=== PATIENT | female | born 1940 | race Caucasian/White ===

== ENCOUNTER 2023-08-18 15:49 | Inpatient (IN) | payer MEDICARE ==
[2023-08-18] VITALS (7 sets, daily range): PULSE 102–160; RESP 30–36; O2SAT 91–97
[~2023-08-18] VITALS: Ht 160 cm; Wt 67.0 kg
[2023-08-18] MEDS: amiodarone 150mg/dext, iso-os 100 ML IV ONE (16:13)
[2023-08-18 16:15] LABS: ABG BASE EXCESS 6.8 mmol/L (-2.0-2.0); ABG HCO3 30.6 mmol/L (22.0-26.0); ABG OXYGEN SATURATION 88.7 % (94-97); ABG PCO2 (T) 40.6 mmHg (32.0-45.0); ABG PH (T) 7.495 (7.350-7.450); ABG PO2 (T) 50.6 mmHg (75.0-100.0); ALLEN'S TEST POSITIVE; FCOHb 0.1 % (0.0-3.9); FHHb 11.3 % (0.0-5.0); FLOW 7 L/min; FMetHb 0.2 % (0.0-1.5); FO2Hb 88.4 % (94-97); MODE MASK - CPAP; TOTAL HEMOGLOBIN 11.5 G/dl (12.0-16.0)
[2023-08-18] MEDS: amiodarone/D5 360MG/200ML BAG 200 ML IV SCH ×2 (16:27→22:05)
[2023-08-18] MEDS: albuterol 2.5 MG/3 ML nebule CONTNEB PRN (16:39)
[2023-08-18] MEDS: ipratropium 0.5 MG/2.5ML nebule IH ONE (16:44)
[2023-08-18 16:49] LABS: BASOPHILS # (AUTO) 0.1 X10'3 (0-0.2); BASOPHILS % (AUTO) 0.7 % (0-1); EOSINOPHILS # (AUTO) 0.1 X10'3 (0-0.9); HEMATOCRIT 39.2 % (35.0-45.0); HEMOGLOBIN 12.4 g/dl (12.0-16.0); LYMPHOCYTES # (AUTO) 0.9 X10'3 (1.1-4.8); MEAN CORPUSCULAR HEMOGLOBIN 30.1 PG (27.0-31.0); MEAN CORPUSCULAR HGB CONC 31.7 g/dL (33.0-36.5); MEAN CORPUSCULAR VOLUME 94.7 FL (78-98); MEAN PLATELET VOLUME 8.5 FL (7.4-10.4); MONOCYTES # (AUTO) 0.6 X10'3 (0-0.9); MONOCYTES % (AUTO) 7.5 % (2-12); NEUTROPHILS # (AUTO) 6.5 X10'3 (1.8-7.7); NEUTROPHILS % (AUTO) 79.8 % (42-75); PLATELET COUNT 380 X10'3 (140-440); RED BLOOD COUNT 4.13 X10'6 (4.20-5.60); RED CELL DISTRIBUTION WIDTH 20.1 % (11.5-14.5); WHITE BLOOD COUNT 8.1 X10'3 (4.5-11.0)
[2023-08-18 16:56] LABS: PROTHROMBIN TIME 11.2 SECONDS (9.0-12.0)
[2023-08-18 17:07] LABS: ALBUMIN 2.2 G/DL (3.4-5.0); ANION GAP 4 (8-16); BLOOD UREA NITROGEN 26 MG/DL (7-18); BUN/CREATININE RATIO 34.7 (10.0-20.0); CALCIUM 9.3 MG/DL (8.5-10.1); CHLORIDE 100 MMOL/L (99-107); CREATININE 0.75 MG/DL (0.40-0.90); GLUCOSE 119 MG/DL (70-104); PRO BRAIN NATRIURETIC PEPTIDE 5745 PG/ML (0-450); SODIUM 142 MMOL/L (135-145); TOTAL CARBON DIOXIDE 38.1 MMOL/L (24-32); eCRCL 49 ML/MIN; eGFR 74 ML/MIN
[2023-08-18] MEDS ORDERED: iohexol 350MG/ML 100ml bottle IV ONE (17:09)
[2023-08-18 17:14] LABS: POTASSIUM 5.4 MMOL/L (3.5-5.1)
[2023-08-18] MEDS ORDERED: heparin 10,000 units/1 ML INJ IV PRN ×2 (18:30→20:10)
[2023-08-18] MEDS ORDERED: heparin 10,000 units/1 ML INJ IV ONE (18:30)
[2023-08-18] MEDS: metoprolol tartrate 1mg/ml inj IV ONE (18:32)
[2023-08-18] MEDS: heparin 10,000 units/1 ML INJ IV ONE (18:46)
[2023-08-18] MEDS: heparin 25,000 UNIT/250ml bag 250 ML IV PRN (18:48)
[2023-08-18 19:06] LABS: BILIRUBIN,URINE NEGATIVE (Neg); CLARITY,URINE CLOUDY (Clear); COLOR,URINE YELLOW (Yellow); GLUCOSE, URINE NEGATIVE (Neg); KETONES,URINE NEGATIVE (Neg); LEUKOCYTE ESTERASE ,URINE LARGE (Neg); NITRITES, URINE NEGATIVE (Neg); OCCULT BLOOD,URINE TRACE-INTACT (Neg); PROTEIN,URINE 100 mg/dl (Neg); UROBILINOGEN,URINE 0.2 E.U/dL (0.2-1.0)
[2023-08-18 19:11] LABS: UA COLLECTION TYPE FOLEY CATH
[2023-08-18 19:15] LABS: BACTERIA,URINE 2+ /HPF (Neg); MUCUS STRANDS NONE SEEN /LPF (Neg); RBC,URINE 0-2 /HPF (0-2); SQUAMOUS EPITHELIAL CELL,UR NONE SEEN /LPF (FEW); WBC,URINE TNTC /HPF (0-4)
[2023-08-18 19:42] LABS: TOTAL CELLS COUNTED 100
[2023-08-18 19:43] LABS: ANISOCYTOSIS 3+; LARGE PLATELETS FEW; PLATELET ESTIMATE NORMAL
[2023-08-18] MEDS: ciprofloxacin lact 400MG/200ML 200 ML IV ONE (19:54)
[2023-08-18] MEDS ORDERED: potassium Cl 20 mEq SR tablet PO PRN ×3 (20:05→22:50)
[2023-08-18] MEDS ORDERED: magnesium 4gm in 100ml NS 100 ML IV PRN ×2 (20:05→22:50)
[2023-08-18] MEDS ORDERED: normal saline 1000ml 1,000 ML IV SCH (20:05)
[2023-08-18] MEDS ORDERED: morphine 2 MG/ML inj. syringe IV PRN ×3 (20:05→22:50)
[2023-08-18] MEDS ORDERED: acetaminophen 325mg tablet PO PRN ×3 (20:05→22:50)
[2023-08-18] MEDS ORDERED: potassium Cl 40MEQ/1/2NS 520ml 520 ML IV PRN ×2 (20:05→22:50)
[2023-08-18] MEDS ORDERED: HYDROcodone/acetaminophen 10/325mg tab PO PRN (20:05)
[2023-08-18] MEDS ORDERED: magnesium Cl slow-release 64mg tablet PO PRN ×2 (20:05→22:50)
[2023-08-18] MEDS ORDERED: ondansetron/PF 4mg/2ml inj IV PRN ×2 (20:05→22:50)
[2023-08-18] MEDS ORDERED: magnesium 2GM in 50ml NS 50 ML IV PRN ×2 (20:05→22:50)
[2023-08-18] MEDS ORDERED: HYDROcodone/acetaminophen 5mg/325mg tablet PO PRN ×2 (20:05→22:50)
[2023-08-18] MEDS ORDERED: heparin 25,000 UNIT/250ml bag 250 ML IV PRN (20:10)
[2023-08-18] MEDS: acetaminophen 1,000mg/100ml IV 100 ML IV ONE (20:22)
[2023-08-18] MEDS: normal saline 1000ml 1,000 ML IV ONE (21:15)
[2023-08-18] MEDS: normal saline 1000ML IV soln IVB ONE (22:15)
[2023-08-18] MEDS: normal saline 1000ml 1,000 ML IV SCH (22:50)
[2023-08-18] MEDS ORDERED: BUDE0.5A11 NEB (23:31)
[2023-08-18] MEDS ORDERED: IRON150C5 PO (23:31)
[2023-08-18] MEDS ORDERED: LACT10SO7 PO (23:31)
[2023-08-18] MEDS ORDERED: FORM20VI IH (23:31)
[2023-08-18] MEDS ORDERED: PANT-47 PO (23:33)
[2023-08-18] MEDS ORDERED: LOP12.5T PO (23:33)
[2023-08-19] VITALS (23 sets, daily range): BP systolic 98–126; BP diastolic 44–67; PULSE 76–101; RESP 15–31; TEMP 96.7–97.6; O2SAT 90–98
[2023-08-19] MEDS ORDERED: albuterol 2.5 MG/3 ML nebule NEB SCH
[2023-08-19] MEDS: heparin 25,000 UNIT/250ml bag 250 ML IV PRN (01:39)
[2023-08-19] MEDS ORDERED: furosemide 40mg/4ml inj IV SCH (08:00)
[2023-08-19] MEDS: ipratropium/albuterol 3ml nebule NEB PRN (09:39)
[2023-08-19] MEDS: budesonide 0.5mg/2ml UD nebule IH SCH (09:39)
[2023-08-19 09:54] LABS: ABG HCO3 30.6 mmol/L (22.0-26.0); ABG OXYGEN SATURATION 93.9 % (94-97); ABG PCO2 (T) 39.3 mmHg (32.0-45.0); ABG PH (T) 7.509 (7.350-7.450); ABG PO2 (T) 65.7 mmHg (75.0-100.0); ALLEN'S TEST POSITIVE; FCOHb 0.3 % (0.0-3.9); FHHb 6.1 % (0.0-5.0); FLOW 50 L/min; FMetHb 0.3 % (0.0-1.5); FO2Hb 93.3 % (94-97); MODE HHFNC; TOTAL HEMOGLOBIN 9.8 G/dl (12.0-16.0)
[2023-08-19 10:59] LABS: HEMOGLOBIN 8.6 g/dl (12.0-16.0)
[2023-08-19 11:02] LABS: BASOPHILS # (AUTO) 0.1 X10'3 (0-0.2); BASOPHILS % (AUTO) 0.8 % (0-1); EOSINOPHILS # (AUTO) 0.1 X10'3 (0-0.9); EOSINOPHILS % (AUTO) 1.5 % (0-6); HEMATOCRIT 26.3 % (35.0-45.0); LYMPHOCYTES # (AUTO) 1.5 X10'3 (1.1-4.8); LYMPHOCYTES % (AUTO) 15.9 % (21-51); MEAN CORPUSCULAR HEMOGLOBIN 30.7 PG (27.0-31.0); MEAN CORPUSCULAR HGB CONC 32.7 g/dL (33.0-36.5); MEAN CORPUSCULAR VOLUME 93.7 FL (78-98); MEAN PLATELET VOLUME 8.6 FL (7.4-10.4); MONOCYTES # (AUTO) 0.7 X10'3 (0-0.9); MONOCYTES % (AUTO) 7.3 % (2-12); NEUTROPHILS # (AUTO) 7.2 X10'3 (1.8-7.7); NEUTROPHILS % (AUTO) 74.5 % (42-75); PLATELET COUNT 386 X10'3 (140-440); RED BLOOD COUNT 2.81 X10'6 (4.20-5.60); RED CELL DISTRIBUTION WIDTH 19.6 % (11.5-14.5); WHITE BLOOD COUNT 9.7 X10'3 (4.5-11.0)
[2023-08-19 11:28] LABS: ALANINE AMINOTRANSFERASE 55 U/L (12-78); ALBUMIN 1.8 G/DL (3.4-5.0); ALBUMIN/GLOBULIN RATIO 0.5 (1.1-1.5); ALKALINE PHOSPHATASE 302 IU/L (46-116); ANION GAP 6 (8-16); ASPARTATE AMINO TRANSFERASE 50 U/L (10-37); BILIRUBIN,TOTAL 0.3 MG/DL (0.1-1.0); BLOOD UREA NITROGEN 24 MG/DL (7-18); BUN/CREATININE RATIO 34.8 (10.0-20.0); CALCIUM 9.1 MG/DL (8.5-10.1); CHLORIDE 103 MMOL/L (99-107); CREATININE 0.69 MG/DL (0.40-0.90); GLUCOSE 100 MG/DL (70-104); POTASSIUM 4.3 MMOL/L (3.5-5.1); SODIUM 141 MMOL/L (135-145); TOTAL CARBON DIOXIDE 31.8 MMOL/L (24-32); TOTAL PROTEIN 5.3 G/DL (6.4-8.2); eCRCL 53 ML/MIN; eGFR 81 ML/MIN
[2023-08-19 12:08] LABS: ANISOCYTOSIS 2+; PLATELET ESTIMATE NORMAL; TOTAL CELLS COUNTED 100
[2023-08-19 12:09] LABS: POLYCHROMASIA 1+
[2023-08-19 15:53] LABS: BASOPHILS # (AUTO) 0.1 X10'3 (0-0.2); BASOPHILS % (AUTO) 1.1 % (0-1); EOSINOPHILS # (AUTO) 0.1 X10'3 (0-0.9); EOSINOPHILS % (AUTO) 1.5 % (0-6); HEMATOCRIT 26.5 % (35.0-45.0); HEMOGLOBIN 8.7 g/dl (12.0-16.0); LYMPHOCYTES # (AUTO) 1.2 X10'3 (1.1-4.8); LYMPHOCYTES % (AUTO) 12.6 % (21-51); MEAN CORPUSCULAR HEMOGLOBIN 30.7 PG (27.0-31.0); MEAN CORPUSCULAR HGB CONC 32.8 g/dL (33.0-36.5); MEAN CORPUSCULAR VOLUME 93.5 FL (78-98); MEAN PLATELET VOLUME 8.3 FL (7.4-10.4); MONOCYTES # (AUTO) 0.7 X10'3 (0-0.9); MONOCYTES % (AUTO) 7.3 % (2-12); NEUTROPHILS # (AUTO) 7.3 X10'3 (1.8-7.7); NEUTROPHILS % (AUTO) 77.5 % (42-75); PLATELET COUNT 407 X10'3 (140-440); RED BLOOD COUNT 2.84 X10'6 (4.20-5.60); WHITE BLOOD COUNT 9.4 X10'3 (4.5-11.0)
[2023-08-19] MEDS: CefTRIAXone/D5W-Rocephin 1gm 50 ML IV ONE (18:47)
[2023-08-20] VITALS (36 sets, daily range): BP systolic 95–132; BP diastolic 54–80; PULSE 76–143; RESP 17–68; TEMP 96.3–100; O2SAT 88–97
[2023-08-20] MEDS: heparin 10,000 units/1 ML INJ IV PRN (04:41)
[2023-08-20 06:10] LABS: BASOPHILS # (AUTO) 0.1 X10'3 (0-0.2); BASOPHILS % (AUTO) 0.6 % (0-1); EOSINOPHILS # (AUTO) 0.2 X10'3 (0-0.9); HEMATOCRIT 35.7 % (35.0-45.0); HEMOGLOBIN 11.9 g/dl (12.0-16.0); LYMPHOCYTES # (AUTO) 0.8 X10'3 (1.1-4.8); LYMPHOCYTES % (AUTO) 4.8 % (21-51); MEAN CORPUSCULAR HEMOGLOBIN 29.9 PG (27.0-31.0); MEAN CORPUSCULAR HGB CONC 33.2 g/dL (33.0-36.5); MEAN PLATELET VOLUME 8.6 FL (7.4-10.4); MONOCYTES # (AUTO) 0.7 X10'3 (0-0.9); MONOCYTES % (AUTO) 4.7 % (2-12); NEUTROPHILS # (AUTO) 14.1 X10'3 (1.8-7.7); NEUTROPHILS % (AUTO) 88.9 % (42-75); PLATELET COUNT 382 X10'3 (140-440); RED BLOOD COUNT 3.97 X10'6 (4.20-5.60); RED CELL DISTRIBUTION WIDTH 18.9 % (11.5-14.5); WHITE BLOOD COUNT 15.9 X10'3 (4.5-11.0)
[2023-08-20 06:24] LABS: ALANINE AMINOTRANSFERASE 47 U/L (12-78); ALBUMIN 1.9 G/DL (3.4-5.0); ALBUMIN/GLOBULIN RATIO 0.5 (1.1-1.5); ALKALINE PHOSPHATASE 296 IU/L (46-116); ANION GAP 5 (8-16); ASPARTATE AMINO TRANSFERASE 41 U/L (10-37); BILIRUBIN,TOTAL 0.7 MG/DL (0.1-1.0); BLOOD UREA NITROGEN 18 MG/DL (7-18); BUN/CREATININE RATIO 26.1 (10.0-20.0); CALCIUM 8.5 MG/DL (8.5-10.1); CHLORIDE 104 MMOL/L (99-107); CREATININE 0.69 MG/DL (0.40-0.90); GLUCOSE 114 MG/DL (70-104); POTASSIUM 3.8 MMOL/L (3.5-5.1); SODIUM 141 MMOL/L (135-145); TOTAL CARBON DIOXIDE 31.8 MMOL/L (24-32); TOTAL PROTEIN 5.7 G/DL (6.4-8.2); eCRCL 53 ML/MIN; eGFR 81 ML/MIN
[2023-08-20] MEDS: amiodarone 200mg tablet PO SCH (08:05)
[2023-08-20] MEDS: amiodarone/D5 360MG/200ML BAG 200 ML IV SCH (08:20)
[2023-08-20] MEDS: CefTRIAXone/D5W-Rocephin 1gm 50 ML IV SCH (08:45)
[2023-08-20] MEDS ORDERED: linezolid 600mg/300ml PREMIX 300 ML IV SCH (10:50)
[2023-08-20] MEDS ORDERED: albuterol 2.5 MG/3 ML nebule NEB SCH (11:00)
[2023-08-20 12:07] LABS: HEMATOCRIT 34.7 % (35.0-45.0); HEMOGLOBIN 11.1 g/dl (12.0-16.0); MEAN CORPUSCULAR HEMOGLOBIN 29.3 PG (27.0-31.0); MEAN CORPUSCULAR HGB CONC 32.1 g/dL (33.0-36.5); MEAN CORPUSCULAR VOLUME 91.4 FL (78-98); MEAN PLATELET VOLUME 8.5 FL (7.4-10.4); PLATELET COUNT 395 X10'3 (140-440); RED BLOOD COUNT 3.79 X10'6 (4.20-5.60); RED CELL DISTRIBUTION WIDTH 20.4 % (11.5-14.5); WHITE BLOOD COUNT 17.4 X10'3 (4.5-11.0)
[2023-08-20] MEDS: linezolid 600mg/300ml PREMIX 300 ML IV SCH (12:35)
[2023-08-20] MEDS: iron polysaccharide complex 150mg capsule PO SCH (12:36)
[2023-08-20] MEDS: albuterol 2.5 MG/3 ML nebule NEB SCH (14:31)
[2023-08-20] MEDS: pantoprazole 40mg Tablet.DR PO SCH (17:00)
[2023-08-20] MEDS: lactulose 20gm/30ml cup PO SCH (20:00)
[2023-08-20] MEDS: metoprolol tartrate 12.5mg (1/2 tablet) PO SCH (20:00)
[2023-08-20] MEDS: budesonide 0.5mg/2ml UD nebule IH SCH (20:13)
[2023-08-21] VITALS (30 sets, daily range): BP systolic 110–132; BP diastolic 61–82; PULSE 78–115; RESP 16–40; TEMP 97.1–97.7; O2SAT 91–98
[2023-08-21 07:48] LABS: BASOPHILS # (AUTO) 0.1 X10'3 (0-0.2); BASOPHILS % (AUTO) 0.8 % (0-1); EOSINOPHILS % (AUTO) 0.3 % (0-6); HEMATOCRIT 33.4 % (35.0-45.0); HEMOGLOBIN 11.1 g/dl (12.0-16.0); LYMPHOCYTES # (AUTO) 0.8 X10'3 (1.1-4.8); LYMPHOCYTES % (AUTO) 5.8 % (21-51); MEAN CORPUSCULAR HGB CONC 33.2 g/dL (33.0-36.5); MEAN CORPUSCULAR VOLUME 90.5 FL (78-98); MEAN PLATELET VOLUME 8.6 FL (7.4-10.4); MONOCYTES # (AUTO) 0.6 X10'3 (0-0.9); MONOCYTES % (AUTO) 4.5 % (2-12); NEUTROPHILS # (AUTO) 12.5 X10'3 (1.8-7.7); NEUTROPHILS % (AUTO) 88.6 % (42-75); PLATELET COUNT 407 X10'3 (140-440); RED BLOOD COUNT 3.69 X10'6 (4.20-5.60); RED CELL DISTRIBUTION WIDTH 19.2 % (11.5-14.5); WHITE BLOOD COUNT 14.1 X10'3 (4.5-11.0)
[2023-08-21 08:21] LABS: ALANINE AMINOTRANSFERASE 33 U/L (12-78); ALBUMIN 1.8 G/DL (3.4-5.0); ALBUMIN/GLOBULIN RATIO 0.5 (1.1-1.5); ALKALINE PHOSPHATASE 248 IU/L (46-116); ANION GAP 7 (8-16); ASPARTATE AMINO TRANSFERASE 29 U/L (10-37); BILIRUBIN,TOTAL 0.4 MG/DL (0.1-1.0); BLOOD UREA NITROGEN 15 MG/DL (7-18); BUN/CREATININE RATIO 20.3 (10.0-20.0); CHLORIDE 102 MMOL/L (99-107); CREATININE 0.74 MG/DL (0.40-0.90); GLUCOSE 107 MG/DL (70-104); POTASSIUM 3.2 MMOL/L (3.5-5.1); SODIUM 139 MMOL/L (135-145); TOTAL CARBON DIOXIDE 30.5 MMOL/L (24-32); TOTAL PROTEIN 5.4 G/DL (6.4-8.2); eCRCL 48 ML/MIN; eGFR 75 ML/MIN
[2023-08-21] MEDS: metoprolol tartrate 12.5mg (1/2 tablet) PO SCH (08:43)
[2023-08-21] MEDS: potassium Cl 20 mEq SR tablet PO PRN (17:18)
[2023-08-21] MEDS: lactulose 20gm/30ml cup PO SCH (20:26)
[2023-08-21] MEDS: amiodarone 200mg tablet PO SCH (20:26)
[2023-08-22] VITALS (20 sets, daily range): BP systolic 111–131; BP diastolic 63–81; PULSE 72–89; RESP 20–31; TEMP 97.1–97.9; O2SAT 92–95
[2023-08-22 01:28] LABS: BASOPHILS # (AUTO) 0.1 X10'3 (0-0.2); BASOPHILS % (AUTO) 0.9 % (0-1); EOSINOPHILS # (AUTO) 0.2 X10'3 (0-0.9); EOSINOPHILS % (AUTO) 1.4 % (0-6); HEMATOCRIT 33.9 % (35.0-45.0); HEMOGLOBIN 11.5 g/dl (12.0-16.0); LYMPHOCYTES # (AUTO) 0.8 X10'3 (1.1-4.8); LYMPHOCYTES % (AUTO) 7.2 % (21-51); MEAN CORPUSCULAR HEMOGLOBIN 30.3 PG (27.0-31.0); MEAN CORPUSCULAR HGB CONC 33.9 g/dL (33.0-36.5); MEAN CORPUSCULAR VOLUME 89.6 FL (78-98); MONOCYTES # (AUTO) 0.7 X10'3 (0-0.9); MONOCYTES % (AUTO) 6.2 % (2-12); NEUTROPHILS # (AUTO) 9.9 X10'3 (1.8-7.7); NEUTROPHILS % (AUTO) 84.3 % (42-75); PLATELET COUNT 380 X10'3 (140-440); RED BLOOD COUNT 3.79 X10'6 (4.20-5.60); RED CELL DISTRIBUTION WIDTH 18.6 % (11.5-14.5); WHITE BLOOD COUNT 11.7 X10'3 (4.5-11.0)
[2023-08-22 01:41] LABS: ALANINE AMINOTRANSFERASE 31 U/L (12-78); ALBUMIN 1.9 G/DL (3.4-5.0); ALBUMIN/GLOBULIN RATIO 0.5 (1.1-1.5); ALKALINE PHOSPHATASE 230 IU/L (46-116); ANION GAP 8 (8-16); ASPARTATE AMINO TRANSFERASE 27 U/L (10-37); BILIRUBIN,TOTAL 0.3 MG/DL (0.1-1.0); BLOOD UREA NITROGEN 13 MG/DL (7-18); BUN/CREATININE RATIO 17.6 (10.0-20.0); CALCIUM 8.7 MG/DL (8.5-10.1); CHLORIDE 101 MMOL/L (99-107); CREATININE 0.74 MG/DL (0.40-0.90); GLUCOSE 104 MG/DL (70-104); POTASSIUM 3.3 MMOL/L (3.5-5.1); SODIUM 139 MMOL/L (135-145); TOTAL CARBON DIOXIDE 30.5 MMOL/L (24-32); TOTAL PROTEIN 5.6 G/DL (6.4-8.2); eCRCL 48 ML/MIN; eGFR 75 ML/MIN
[2023-08-22 02:40] LABS: ANISOCYTOSIS 2+; PLATELET ESTIMATE NORMAL
[2023-08-22 02:41] LABS: LARGE PLATELETS FEW; POLYCHROMASIA FEW
[2023-08-22] MEDS: potassium Cl 40MEQ/1/2NS 520ml 520 ML IV PRN (03:38)
[2023-08-22] MEDS ORDERED: ondansetron 4mg rapidly disintigrating tab PO PRN (13:16)
[2023-08-22] MEDS: acetaminophen 325mg tablet PO PRN (14:58)
[2023-08-22] MEDS: pantoprazole 40MG/NS 100ML BAG 100 ML IV SCH (21:38)
[2023-08-23] VITALS (12 sets, daily range): BP systolic 121–154; BP diastolic 72–88; PULSE 73–90; RESP 14–21; TEMP 97.1–98.3; O2SAT 90–98
[2023-08-23 04:59] LABS: BASOPHILS # (AUTO) 0.1 X10'3 (0-0.2); BASOPHILS % (AUTO) 0.6 % (0-1); EOSINOPHILS # (AUTO) 0.3 X10'3 (0-0.9); EOSINOPHILS % (AUTO) 2.3 % (0-6); HEMATOCRIT 35.4 % (35.0-45.0); HEMOGLOBIN 11.4 g/dl (12.0-16.0); LYMPHOCYTES % (AUTO) 9.3 % (21-51); MEAN CORPUSCULAR HEMOGLOBIN 29.3 PG (27.0-31.0); MEAN CORPUSCULAR HGB CONC 32.2 g/dL (33.0-36.5); MEAN PLATELET VOLUME 8.2 FL (7.4-10.4); MONOCYTES # (AUTO) 0.8 X10'3 (0-0.9); MONOCYTES % (AUTO) 7.1 % (2-12); NEUTROPHILS # (AUTO) 9.1 X10'3 (1.8-7.7); NEUTROPHILS % (AUTO) 80.7 % (42-75); PLATELET COUNT 394 X10'3 (140-440); RED BLOOD COUNT 3.89 X10'6 (4.20-5.60); RED CELL DISTRIBUTION WIDTH 18.5 % (11.5-14.5); WHITE BLOOD COUNT 11.2 X10'3 (4.5-11.0)
[2023-08-23 05:34] LABS: ALANINE AMINOTRANSFERASE 22 U/L (12-78); ALBUMIN 1.8 G/DL (3.4-5.0); ALBUMIN/GLOBULIN RATIO 0.5 (1.1-1.5); ALKALINE PHOSPHATASE 197 IU/L (46-116); ANION GAP 12 (8-16); ASPARTATE AMINO TRANSFERASE 27 U/L (10-37); BILIRUBIN,TOTAL 0.3 MG/DL (0.1-1.0); BLOOD UREA NITROGEN 11 MG/DL (7-18); BUN/CREATININE RATIO 18.3 (10.0-20.0); CALCIUM 8.6 MG/DL (8.5-10.1); CHLORIDE 105 MMOL/L (99-107); GLUCOSE 96 MG/DL (70-104); SODIUM 143 MMOL/L (135-145); TOTAL CARBON DIOXIDE 26.5 MMOL/L (24-32); TOTAL PROTEIN 5.3 G/DL (6.4-8.2); eCRCL 59 ML/MIN; eGFR > 90 ML/MIN
[2023-08-23 05:38] LABS: POTASSIUM 3.7 MMOL/L (3.5-5.1)
== END 2023-08-23 20:20 | DRG 871 ==
LOC: ER 15:49 → ED HOLD 20:08 → EDBEDREQ 08-19 06:31 → CANBEDREQ 08-19 07:22 → PCU 3S 08-19 08:05 → PAS IN 08-21 15:59 → PCU 3S 08-21 16:01
PROVIDERS: ADMIT Internal Medicine; ATTEND Internal Medicine
PROC: 5A0935A Assistance with Respiratory Ventilation, Less than 24 Consecutive Hours, High Flow/Velocity Cannula (ICD-10-PCS; principal; 2023-08-19)
PROC: 30233N1 Transfusion of Nonautologous Red Blood Cells into Peripheral Vein, Percutaneous Approach (ICD-10-PCS; 2023-08-19)
PROC: 5A0945A Assistance with Respiratory Ventilation, 24-96 Consecutive Hours, High Flow/Velocity Cannula (ICD-10-PCS; 2023-08-20)
DX: A41.9 Sepsis, unspecified organism (principal); I26.92 Saddle embolus of pulmonary artery without acute cor pulmonale; J96.21 Acute and chronic respiratory failure with hypoxia; N39.0 Urinary tract infection, site not specified; J98.11 Atelectasis; J44.9 Chronic obstructive pulmonary disease, unspecified; N18.9 Chronic kidney disease, unspecified; Z66 Do not resuscitate; Z20.822 Contact with and (suspected) exposure to COVID-19; I48.91 Unspecified atrial fibrillation; I12.9 Hypertensive chronic kidney disease with stage 1 through stage 4 chronic kidney disease, or unspecified chronic kidney disease; K74.60 Unspecified cirrhosis of liver; K59.00 Constipation, unspecified; G47.33 Obstructive sleep apnea (adult) (pediatric); Z88.2 Allergy status to sulfonamides; Z88.0 Allergy status to penicillin; Z86.718 Personal history of other venous thrombosis and embolism; Z86.711 Personal history of pulmonary embolism; Z79.899 Other long term (current) drug therapy
CPT/HCPCS: 36415; 36430; 36600; 71045; 71275; 80048; 80053; 81001; 82803; 83605; 83880; 84145; 84484; 85007; 85008; 85018; 85025; 85027; 85610; 85730; 86885; 86900; 86901; 86920; 87040; 87077; 87081; 87088; 87186; 87811; 93005; 93306; 94640; 94760; 94799; 99285; A4615; A5200; A6212; A6213; A6222; A6250; A6258; A6446; A6449; A7015; C9113; G0378; J0131; J0282; J0696; J0744; J1644; J2020; J3480; J3490; J7030; J7040; P9016; Q9967